=== PATIENT | male | born 1955 | race Caucasian/White ===

== ENCOUNTER 2018-12-09 15:04 | Emergency (ER) | payer MEDICARE ==
[~2018-12-09] VITALS: Ht 152.4 cm; Wt 54.4 kg
[~2018-12-09 15:04] MED LIST: LEVOTHYROXINE25 MCG PO; LISINOPRIL-HCT1 EACH PO; NORCO 5-325 TA1 EACH PO; PRILOSEC20 MG PO; VALACYCLOVIR500 MG PO
[2018-12-09] MEDS ORDERED: NORCO 5-325 TA1 EACH PO (16:42)
== END 2018-12-09 16:59 | disposition home or self-care (01) ==
LOC: ED 15:04
DX: R10.9 Unspecified abdominal pain (principal); R07.81 Pleurodynia; M54.9 Dorsalgia, unspecified; I10 Essential (primary) hypertension; E03.9 Hypothyroidism, unspecified; K21.9 Gastro-esophageal reflux disease without esophagitis; F17.200 Nicotine dependence, unspecified, uncomplicated; Z79.899 Other long term (current) drug therapy
CPT/HCPCS: 71046; 81001; 99284-25

== ENCOUNTER 2025-03-05 10:00 | Emergency (ER) | payer MEDICARE ==
[~2025-03-05] VITALS: Ht 152.4 cm; Wt 44.5 kg
[~2025-03-05 10:00] MED LIST changes: +COZAAR100 MG PO; +METOPROLOL SUC100 MG PO
[2025-03-05 10:39] LABS: BASOPHILS 0.3 % (0.2-1.2); EOSINOPHILS 2.5 % (0.8-7.0); HEMOGLOBIN 14.7 g/dL (13.7-17.5); LYMPHOCYTES 26.9 % (21.8-53.1); MCHC 35.9 g/dL (32.3-36.5); MCV 86.5 fL (79.0-92.2); MONOCYTES 10.4 % (5.3-12.2); NEUTROPHILS 59.2 % (34.0-67.9); PLATELET COUNT 299 K/uL (163-337); RBC 4.74 M/uL (4.63-6.08)
[2025-03-05] MEDS ORDERED: ALFUZOSIN HCL10 MG PO (10:48)
[2025-03-05] MEDS ORDERED: MULTI VITAMIN1 EACH PO (10:49)
[2025-03-05] MEDS ORDERED: VITAMIN B COMP1 EACH PO (10:49)
[2025-03-05] MEDS ORDERED: NORVASC5 MG PO (10:50)
[2025-03-05 10:57] LABS: ALBUMIN 3.8 g/dL (3.4-5.0); ALBUMIN/GLOBULIN RATIO 1.03 (1.1-2.4); ANION GAP 11.5 (7-21); BILIRUBIN, TOTAL 0.7 mg/dL (0.2-1.0); BUN/CREATININE RATIO 15.71 (6.0-28.6); CALCIUM 8.9 mg/dL (8.5-10.1); CREATININE, SERUM 0.7 mg/dL (0.70-1.30); POTASSIUM 4.5 mmol/L (3.5-5.1); PROTEIN, TOTAL 7.5 g/dL (6.4-8.2)
[2025-03-05] MEDS ORDERED: SODIUM CHLORIDE 0.9% 1,000 ML IV PRN (11:30)
[2025-03-05 13:15] VITALS: BP 126/59
== END 2025-03-05 13:20 | disposition home or self-care (01) ==
LOC: ED 10:00
PROVIDERS: Emergency Medicine
DX: E87.1 Hypo-osmolality and hyponatremia (principal); I10 Essential (primary) hypertension; K21.9 Gastro-esophageal reflux disease without esophagitis; Z91.030 Bee allergy status; Z88.2 Allergy status to sulfonamides; Z79.899 Other long term (current) drug therapy
CPT/HCPCS: 36415; 80053; 85025; 99284; J7030